=== PATIENT | female | born 1985 | race Two or more races ===

== ENCOUNTER 2021-12-19 09:11 | Emergency (ER) | payer SELFPAY ==
[~2021-12-19] VITALS: Ht 162.6 cm; Wt 59.0 kg
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
[2021-12-19 09:20] VITALS: BP 124/82
--- NOTE | 2021-12-19 09:26 | NUR ---
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
[2021-12-19] MEDS ORDERED: HYDROCODONE/APAP 10/325MG TABLET PO ONE (09:30)
[2021-12-19] MEDS ORDERED: HYDROCODONE/APAP 10/325MG TABLET ONE (09:33)
[2021-12-19] MEDS ORDERED: CYCLOBENZAPRINE 10 MG TABLET PO ONE (11:00)
[2021-12-19] MEDS ORDERED: KETOROLAC TROMETHAMINE INJ 60 MG/2 ML VIAL IM ONE (11:00)
--- NOTE | 2021-12-19 11:16 | NUR ---
PT TAKEN TO CT VIA ED
[2021-12-19] MEDS ORDERED: KETOROLAC TROMETHAMINE 15 MG/ML VIAL ONE (11:32)
[2021-12-19] MEDS ORDERED: CYCLOBENZAPRINE 10 MG TABLET ONE (11:32)
[2021-12-19] MEDS ORDERED: NAPR-1164 PO (12:19)
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
== END 2021-12-19 12:30 | disposition home or self-care (01) ==
LOC: ER 09:21
DX: S13.4XXA Sprain of ligaments of cervical spine, initial encounter (principal); S09.90XA Unspecified injury of head, initial encounter; V49.49XA Driver injured in collision with other motor vehicles in traffic accident, initial encounter; Y93.89 Activity, other specified; Y92.413 State road as the place of occurrence of the external cause; Y99.8 Other external cause status
CPT/HCPCS: 99284; 72125; 96372; 70450; J1885